=== PATIENT | male | born 1990 | race African-American/Black ===

== ENCOUNTER 2019-02-15 13:56 | Emergency (ER) | payer OTHER ==
[2019-02-15] MEDS ORDERED: KEFLEX500 MG PO (15:23)
[2019-02-15 15:30] VITALS: BP 144/68
== END 2019-02-15 15:37 | disposition designated cancer center or children's hospital (05) | DRG 730 ==
LOC: ED 13:56
DX: S31.21XA Laceration without foreign body of penis, initial encounter (principal); X58.XXXA Exposure to other specified factors, initial encounter; Y93.E1 Activity, personal bathing and showering; Y92.142 Bathroom in prison as the place of occurrence of the external cause